=== PATIENT | female | born 1975 | race Two or more races ===

== ENCOUNTER 2017-02-21 17:33 | Emergency (ER) | payer SELFPAY ==
--- NOTE | ~2017-02-21 | CT4 ---
[facility] A Service of [facility] RADIOLOGY TEXT RESULTS PATIENT: RICHARD VU LOCATION: SED : 73 UNIT #: [id number] AGE: [address]: CLARENCE RANGEL SEX: F ORDER DR: [id number] [address] [address] [id number] MR#: [id number] Acc #: [id number] NAME: RICHARD VU : 1975 SEX: F STUDY DATE/TIME: 02/21/2017 19:10 UNIT: SED ROOM: STUDY DESCRIPTION: CT Abd and Pelv Wo Cont Attending Physician: Clarence Rangel Ordering Physician: Clarence Rangel Primary Care Physician: [facility] MEDICAL IMAGING REPORT This report is preliminary unless electronic signature is present. EXAM CT abdomen and pelvis INDICATION Right flank ventura starting today at [address] images were obtained from the dome of the diaphragm of the diaphragm through the symphysis pubis. No oral or intravenous contrast intravenous contrast material was administered. This CT exam was performed with one or more of the following radiation dose reduction techniques: automatic exposure control, adjustment of mA and/or kV according to patient size, and iterative reconstruction. FINDINGS Images through the lung bands tribasilar atelectasis. There is a small hiatal hernia. This patient has some mild perinephric and periureteral soft tissue stranding with perhaps minimal hydronephrosis. Though h There are some minimal hydronephrosis, though I am not convinced I can see a definite obstructing stone. Findings could certainly reflect pyelonephritis. Correlation with urinalysis and urine cultures is recommended. Patient does have multiple punctate nonobstructing stones seen within the right kidney. No stones are identified on the left. No free fluid collections are seen. The patient has diffuse hepatic steatosis. No focal hepatic lesions are seen. There is trace pericardial flows less thickening. The proximal and proximal small bowel are within normal limits. There is a small fat-containing umbilical hernia. There is no evidence of mechanical bowel obstruction. The appendix is not definitively identified on these images, I do not see a definite dilated tubular structure or soft tissue STS. [facility] A Service of [facility] RADIOLOGY TEXT RESULTS PATIENT: RICHARD VU LOCATION: SED : 73 UNIT #: [id number] AGE: [address]: CLARENCE RANGEL SEX: F ORDER DR: stranding in the right lower quadrant to suggest acute appendicitis. A tampon is present in Tampon is present within the bladder. Bladder appears unremarkable. No free fluid or adenopathy is seen within the pelvis. There is no evidence of mechanical bowel obstruction. The liver is enlarged measuring up to 16.8 cm in craniocaudal dimensions. I do not see any definite stranding around the patient's urinary bladder. It appears essentially unremarkable given unenhanced technique. Review of bony windows does not demonstrate any aggressive osseous abnormalities. IMPRESSION 1. I do think the patient has very minimal right-sided hydronephrosis, an obvious obstructing stone is not identified. There is some minimal perinephric stranding and periureteral stranding seen on the right. Potentially constellation of findings may reflect a recently passed stone. Another consider would be pyelonephritis. Correlation with clinical presentation including urinalysis and urine cultures is recommended. Patient is noted to have punctate nonobstructing stones within the right kidney with no stones seen on the left. 2. Hepatomegaly and diffuse hepatic steatosis. 3. Patient's appendix is not definitively identified but I do not see a dilated tubular structure or soft tissue stranding within the right lower quadrant to suggest acute appendicitis. Please see the body of the report for any other additional incidental findings. Dictated by... Corine Velarde M.D. THIS IS AN ELECTRONICALLY VERIFIED REPORT Corine Velarde M.D. at 02/22/2017 10:58 AM TABITHA/koby TD: 02/22/2017 02:50 JOB #: [id number] MEDICAL IMAGING REPORT Page 1 of 1
[2017-02-21 18:13] LABS: BASOPHIL% 0.4 % (0-2.5); EOSINOPHIL% 0.4 % (0.0-7.0); HEMATOCRIT 42.9 % (35.0-45.0); HEMOGLOBIN 14.4 gm/dL (12.0-16.0); LYMPHOCYTE# 0.8 X10e3 (1.0-3.5); LYMPHOCYTE% 7.4 % (17.0-45.0); MEAN CELL VOLUME 83.6 FL (83-96); MEAN CORPUSCULAR HEMOGLOBIN 27.9 PG (28-34); MEAN CORPUSCULAR HGB CONC 33.4 g/dL (30-36); MEAN PLATELET VOLUME 8.7 FL (6.5-11.5); MONOCYTE# 0.2 X10e3 (0-1.0); MONOCYTE% 2.1 % (3.0-12.0); NEUTROPHIL# 10.1 X10e3 (1.5-7.1); NEUTROPHIL% 89.7 % (40-75); PLATELET COUNT 263 X10e3 (140-420); RED BLOOD COUNT 5.14 X10e (3.90-5.30); RED CELL DISTRIBUTION WIDTH 14.1 % (11.0-15.5); WHITE BLOOD COUNT 11.2 X10e3 (4.0-10.5)
[2017-02-21 18:20] LABS: DIFF IND NO
[2017-02-21 18:35] LABS: ALBUMIN SERUM 4.5 g/dL (3.5-5.0); BILIRUBIN, DIRECT 0.1 mg/dL (0.0-0.2); BILIRUBIN,INDIRECT 0.9 mg/dL (0.0-0.9); CALCIUM SERUM 9.4 mg/dL (8.4-10.2); CREATININE SERUM 0.8 mg/dL (0.6-1.4); GLOM FILT RATE Estimated 90.4 mL/min (>60); POTASSIUM 3.5 mmol/L (3.5-5.1); PROTEIN TOTAL SERUM 8.5 g/dL (6.0-8.3)
[2017-02-21 19:11] LABS: URINE SOURCE CLEAN CATCH
[2017-02-21 19:13] LABS: MICRO INDICATED? YES; URINE APPEARANCE CLEAR; URINE BILIRUBIN NEG (NEG); URINE BLOOD 1+ (NEG); URINE COLOR YELLOW; URINE GLUCOSE NEG (NORM); URINE KETONE NEG (NEG); URINE LEUKOCYTE ESTERASE 2+ (NEG); URINE NITRATE NEG (NEG); URINE PH 7.5 (5-8); URINE PROTEIN NEG (NEG); URINE UROBILINOGEN 0.2 MG/DL (NORM)
[2017-02-21 19:18] LABS: CULTURE INDICATED? YES; URINE BACTERIA 1+ (NEG); URINE SQUAMOUS EPITHELIAL CELL OCCAS /[HPF]; URINE WBC 50-100 /[HPF] (0-5)
[2017-02-24] MEDS ORDERED: MACROBID100 M1 PO (15:56)
== END 2017-02-21 21:17 | disposition home or self-care (01) ==
LOC: SED 17:33
PROVIDERS: Physician Assistant
DX: N10 Acute pyelonephritis (principal); Z87.442 Personal history of urinary calculi; R03.0 Elevated blood-pressure reading, without diagnosis of hypertension
CPT/HCPCS: 36415; 74176; 80048; 80076; 81003; 83690; 84703; 85025; 87086; 87088; 87186; 96361; 96365; 96375; 99284; J0696; J1885; J2405